=== PATIENT | male | born 1985 | race Caucasian/White ===

== ENCOUNTER 2020-06-12 17:50 | Emergency (ER) | payer SELFPAY ==
[~2020-06-12 17:50] MED LIST: Iopamidol-370 76% 500 ML 1 ML ONE
[2020-06-12] MEDS ORDERED: Morphine 4 MG/ML VIAL ONE (17:58)
[2020-06-12] MEDS ORDERED: Ketorolac Tromethamine 30 MG/ML VIAL ONE (17:58)
[2020-06-12 18:12] LABS: #Eosinphils 0.3 thou/uL (0.0-0.7); #Lymphocytes 1.1 thou/uL (1.20-3.40); #Monocytes 0.8 thou/uL (0.11-0.59); #Neutrophils 10.9 thou/uL (1.40-6.50); %Basophils 0.3 % (0.0-1.0); %Eosinophils 2.6 % (0.0-10.0); %Lymphocytes 8.6 % (21.0-51.0); %Neutrophils 82.5 % (42.0-75.0); Hemoglobin 15.3 g/dL (14.0-18.0); Mean Corpuscular HGB CONC 35.5 g/dL (32.0-36.0); Mean Corpuscular Hemoglobin 34.2 pg (27.0-31.0); Mean Corpuscular Volume 96.2 fL (78.0-98.0); Platelet Count 253 thou/uL (130-400); Red Blood Cell (RBC) Count 4.47 mill/uL (4.70-6.10); White Blood Cell (WBC) Count 13.2 thou/uL (4.8-10.8)
--- NOTE | 2020-06-12 18:14 | RAD ---
Exam: XR Ankle Rt 3 View STANDARD HISTORY: Right ankle injury after a fall. COMPARISON: None FINDINGS: No acute fracture, dislocation, or other acute osseous abnormality is identified. The ankle mortise is congruent. IMPRESSION: No acute osseous abnormality is identified.
--- NOTE | 2020-06-12 18:16 | RAD ---
Exam: XR Ankle Lt 3 View STANDARD HISTORY: Left ankle injury after a fall COMPARISON: None FINDINGS: There is calcification seen in the region of the distal tibial fibular syndesmosis suggesting prior i njury. There is irregularity in the region of the posterior malleolus on the lateral view, but this also appears to represent a more remote injury. No acute fracture or dislocation is appreciated invol ving the left ankle. The ankle mortise is congruent. IMPRESSION: No acute osseous abnormality is identified.
[2020-06-12 18:30] LABS: ALT (SGPT) 68 U/L (8-55); AST (SGOT) 54 U/L (5-34); Albumin 3.8 g/dL (3.5-5.0); Alkaline Phosphatase 85 U/L (40-110); Anion Gap 16 mmol/L (10-20); BUN (Urea Nitrogen) 6 mg/dL (8.9-20.6); Bilirubin, Total 0.5 mg/dL (0.2-1.2); Calc. Creatinine Clearance 0 mL/min (70-130); Calcium 8.2 mg/dL (7.8-10.44); Carbon Dioxide 22 mmol/L (22-29); Chloride 104 mmol/L (98-107); Globulin 2.7 g/dL (2.4-3.5); Glucose 107 mg/dL (70-105); Potassium 4.1 mmol/L (3.5-5.1); Protein, Total 6.5 g/dL (6.0-8.3); Sodium 138 mmol/L (136-145)
--- NOTE | 2020-06-12 18:46 | CT ---
CT HEAD WITHOUT IV CONTRAST COMPARISON: None. HISTORY: Injury after fall from a deer stand. Patient fell from 1214 feet. TECHNIQUE: Axial CT imaging at 5 mm intervals from vertex through skull base without contrast FINDINGS: There is no evidence of an acute infarction, hemorrhage, mass effect, or midline shift. The ventricul ar system is normal in size, shape, and position. Skull base has a normal CT appearance. Visualized paranasal sinuses are clear. Osseous structures appear intact.No depressed calvarial fracture is seen. IMPRESSION: 1. No acute intracranial abnormality demonstrated.
--- NOTE | 2020-06-12 18:49 | CT ---
EXAM: CT cervical spine PROVIDED CLINICAL HISTORY: Injury after a fall. Back pain. TECHNIQUE: Contiguous axial CT images are obtained through the cervical spine from the skull base to the T1-2 le obdulia. Sagittal and coronal reformatted images are provided. COMPARISON: None FINDINGS: No evidence for fracture or traumatic subluxation. No prevertebral soft tissue swelling apparent. Visualized lung apices appear clear. IMPRESSION: No evidence for fracture or traumatic subluxation.
--- NOTE | 2020-06-12 19:01 | CT ---
EXAM: CT of the chest with IV contrast CT of the abdomen and pelvis with IV contrast CT thoracic and lumbar spine HISTORY: Injury after falling from a deer stand approximately 12 to 14 ft. Back pain. COMPARISON: None FINDINGS: CT CHEST: Mediastinum: Heart is normal in size without focal cardiac abnormality. No hilar or mediastinal lymph adenopathy. No mediastinal hemorrhage. Vessels: There are no findings to suggest an aortic injury. Lungs: Multiple scattered subcentimeter groundglass densities within the lungs bilaterally. Findings are suggestive of infectious or inflammatory process. No consolidation is seen. There is dependent atelectasis. Pleural space: No pneumothorax or pleural effusion. Osseous structures: No evidence of acute fracture. Chest wall: Within normal limits. CT ABDOMEN/PELVIS: Liver: Within normal limits. Gallbladder: Within normal limits for CT appearance. Spleen: Within normal limits. Pancreas: Within normal limits. Adrenal glands: Within normal limits. Kidneys: Within normal limits. Urinary bladder: Within normal limits. Vessels: Abdominal aorta is normal in caliber without evidence of an aortic injury. Pelvis: No focal mass or abnormality. Reproductive organs: Within normal limits for the patient's age. Bowel: No dilated loops of small bowel are seen. There is no bowel wall thickening identified. Peritoneum: No free air or free fluid. Retroperitoneum: No lymphadenopathy. Osseous structures: No acute fracture identified. CT thoracic and lumbar spine: There is an acute wedge-shaped compression fracture involving the L1 ve rtebral body with approximately 10% loss of height anteriorly. The remaining vertebral body heights are within normal limits. No subluxation is seen. IMPRESSION: 1. Mild acute wedge-shaped compression fracture L1 vertebral body. 2. Multiple scattered patchy groundglass densities majority measuring less than 1 cm within the lungs bilaterally. Findings are suggestive of infectious process. This is not the typical appearance for Covid pneumonia, but this could not be entirely excluded. 3. No acute parenchymal organ injury.
[2020-06-12] MEDS ORDERED: HYDROmorphone 0.5 MG/0.5 ML SYRINGE ONE (20:03)
[2020-06-12 20:21] LABS: Bilirubin Negative (Negative); Blood, Urine Negative (Negative); Clarity Clear (Clear); Glucose, Urine (Dipstick) Normal (Negative); Ketone, Urine Negative (Negative); Leukocyte Negative Leu/uL (Negative); Nitrite Negative (Negative); Protein, Urine (Dipstick) Negative (Neg-Trace); Specific Gravity, Urine 1.009 (1.002-1.036); Urobilinogen Normal mg/dL (Less than 2)
== END 2020-06-12 20:48 | disposition home or self-care (01) ==
LOC: ERS 17:50
DX: S32.019A Unspecified fracture of first lumbar vertebra, initial encounter for closed fracture (principal); W17.89XA Other fall from one level to another, initial encounter; Z79.899 Other long term (current) drug therapy; F17.210 Nicotine dependence, cigarettes, uncomplicated
CPT/HCPCS: 36415; 70450; 71260; 72125; 74177; 80053; 81003; 85025; 96374; 96375; J1170; J1885; J2270; Q9967